=== PATIENT | female | born 1950 | race Caucasian/White ===

== ENCOUNTER 2023-09-19 03:46 | Emergency (ER) | payer MEDICARE ==
[2023-09-19 02:49] LABS: BASOPHILS PERCENT AUTO 0.3 % (0.0-1.0); EOSINOPHILS PERCENT AUTO 1.7 % (1.0-3.0); HEMATOCRIT 41.8 % (37.0-47.0); HEMOGLOBIN 13.4 g/dL (12.0-16.0); LYMPHOCYTES PERCENT AUTO 22.4 % (20.5-50.1); MEAN CORPUSCULAR HGB CONC 32.1 g/dL (33.0-35.0); MEAN CORPUSCULAR VOLUME 90.5 fL (80-100); MONOCYTES PERCENT AUTO 8.2 % (2-8); NEUTROPHILS PERCENT AUTO 67.4 % (42.2-75.2); PLATELET COUNT,PLT 245 10^3/uL (150-450); RED BLOOD CELL COUNT 4.62 10^6/uL (4.2-5.4); WHITE BLOOD CELL COUNT,WBC 11.8 10^3/uL (5.0-10.0)
[2023-09-19 03:10] LABS: PTT,PARTIAL THROMBOPLSTIN TIME 24.5 SEC (22.0-34.0)
[2023-09-19 03:14] LABS: LACTIC ACID 1.8 mmol/L (0.4-2.0)
[2023-09-19 03:20] LABS: A/G RATIO 0.9; ALANINE AMINOTRANSFERASE,ALT 31 U/L (14-59); ALBUMIN 3.6 g/dL (3.4-5.0); ALKALINE PHOSPHATASE 68 U/L (46-116); ANION GAP 13.5 mEq/L (7-13); ASPARTATE AMNIOTRANSFERASE,AST 28 U/L (15-37); BILIRUBIN TOTAL 0.9 mg/dL (0.2-1.0); BLOOD UREA NITROGEN,BUN 13 mg/dL (7-18); CALCIUM 8.8 mg/dL (8.5-10.1); CARBON DIOXIDE,CO2 28 mmol/L (21-32); CHLORIDE,CL 105 mmol/L (98-107); CREATININE 0.81 mg/dL (0.55-1.02); GLUCOSE RANDOM 135 mg/dL (70-99); POTASSIUM,K 3.5 mmol/L (3.5-5.1); PROTEIN TOTAL,TP 7.4 g/dL (6.4-8.2); SODIUM,NA 143 mmol/L (136-145); TSH ULTRASENSITIVE 3.72 uIU/mL (0.36-3.74)
[2023-09-19 03:21] LABS: C-REACTIVE PROTEIN < 0.50 ng/dL (<=0.50); ESTIMATED GFR 76 mL/min (>=60); ETHANOL BLOOD MEDICAL < 3 mg/dL (0)
[2023-09-19 03:55] LABS: APPEARANCE,URINE SLIGHTLY CLOUDY (CLEAR); BILIRUBIN,URINE NEGATIVE (NEGATIVE); COLOR,URINE YELLOW (YELLOW); GLUCOSE,URINE NEGATIVE (NEGATIVE); KETONES,URINE NEGATIVE (NEGATIVE); LEUKOCYTE ESTERASE,URINE TRACE (NEGATIVE); NITRITE,URINE POSITIVE (NEGATIVE); OCCULT BLOOD,URINE TRACE-INTACT (NEGATIVE); PH,URINE 5.5 (5.0-9.0); PROTEIN,URINE 100 (NEGATIVE); UROBILINOGEN,URINE 0.2 mg/dL (0.2-1.0)
[2023-09-19 03:56] LABS: AMPHETAMINES,URINE NEGATIVE (NEGATIVE); BARBITURATES,URINE NEGATIVE (NEGATIVE); BENZODIAZEPINE,URINE NEGATIVE (NEGATIVE); MDMA (ECSTASY), URINE NEGATIVE (NEGATIVE); METHADONE,URINE NEGATIVE (NEGATIVE); METHAMPHETAMINES,URINE NEGATIVE (NEGATIVE); OPIATES,URINE NEGATIVE (NEGATIVE); OXYCODONE,URINE NEGATIVE (NEGATIVE); PHENCYCLIDINE,URINE NEGATIVE (NEGATIVE); TCA,URINE NEGATIVE (NEGATIVE)
[2023-09-19 04:06] LABS: BACTERIA,URINE MANY /HPF (0-FEW/HPF); EPITHELIAL CELLS,URINE MODERATE /HPF (NOT SEEN); WBC,URINE 20-30 /HPF (0-5/HPF)
[2023-09-19 04:09] LABS: AMORPHOUS SEDIMENT,URINE MODERATE /HPF (NOT SEEN); FINE GRANULAR CASTS,URINE FEW /LPF (NOT SEEN); MUCUS,URINE FEW /LPF (NOT SEEN)
== END 2023-09-19 03:58 ==
LOC: DL.ED 03:46
DX: I63.9 Cerebral infarction, unspecified (principal); I10 Essential (primary) hypertension; R79.89 Other specified abnormal findings of blood chemistry; Z79.84 Long term (current) use of oral hypoglycemic drugs; Z79.899 Other long term (current) drug therapy; Z86.73 Personal history of transient ischemic attack (TIA), and cerebral infarction without residual deficits
CPT/HCPCS: 36415; 70450; 80053; 80305-QW; 80307; 81001; 82140; 82947; 83605; 84443; 84484; 85025; 85610; 85730; 86140; 87086; 87088; 87186; 93005; 93010; 99285